=== PATIENT | female | born 1950 | race Caucasian/White ===

== ENCOUNTER 2018-05-27 10:58 | Emergency (ER) | payer MEDICARE, OTHER ==
[~2018-05-27] VITALS: Ht 162.6 cm; Wt 63.5 kg
[2018-05-27] MEDS ORDERED: CHOL10005 PO (11:16)
[2018-05-27] MEDS ORDERED: ROSU5TAB PO (11:16)
[2018-05-27] MEDS ORDERED: ASPI81TA31 PO (11:16)
--- NOTE | 2018-05-27 12:53 | NUR ---
Patient discharged to home in stable conditon with family. Written and verbal after care instructions given. Patient and verbalized understanding of instructions.
== END 2018-05-27 12:54 | disposition home or self-care (01) ==
LOC: ER 10:58
DX: S16.1XXA Strain of muscle, fascia and tendon at neck level, initial encounter (principal); S40.021A Contusion of right upper arm, initial encounter; Z79.82 Long term (current) use of aspirin; Z79.899 Other long term (current) drug therapy; V49.59XA Passenger injured in collision with other motor vehicles in traffic accident, initial encounter; Y93.89 Activity, other specified; Y92.89 Other specified places as the place of occurrence of the external cause; Y99.8 Other external cause status
CPT/HCPCS: 70450; 72125; 73060; A4663